=== PATIENT | male | born 1960 | race African-American/Black ===

== ENCOUNTER 2019-06-03 18:34 | Observation (INO) ==
[2019-06-03 19:38] LABS: Basophils % 0.9 %; Eosinophils # 0.1 K/mcL (0.0-0.6); Eosinophils % 3.1 %; Hematocrit 29.5 % (37.5-50.1); Hemoglobin 9.2 g/dL (12.9-16.9); Immature Granulocytes % 0.3 % (0-4); Lymphocytes # 0.5 K/mcL (0.6-4.6); Lymphocytes % 14.6 %; Mean Corpuscular HGB Conc 31.2 g/dL (31.6-35.5); Mean Corpuscular Hemoglobin 24.4 pg (28.0-33.3); Mean Corpuscular Volume 78.2 fL (83.0-100.0); Mean Platelet Volume 7.9 fL (9.4-12.4); Monocytes # 0.4 K/mcL (0.0-1.3); Monocytes % 12.4 %; Neutrophils # 2.2 K/mcL (1.6-8.9); Platelet Count 351 K/mcL (140-400); Red Blood Count 3.77 M/mcL (4.19-5.50); Red Cell Distribution Width 16.5 % (11.5-14.5); Segmented Neutrophils % 68.7 %; White Blood Count 3.2 K/mcL (4.3-11.1)
[2019-06-03 20:00] LABS: BUN/Creatinine Ratio 22 (6-26); Blood Urea Nitrogen 11 mg/dL (8-23); Calcium 8.9 mg/dL (8.6-10.3); Carbon Dioxide 25 mEq/L (23-29); Chloride 91 mEq/L (98-107); Glucose 110 mg/dL (70-105); Osmolality,Calculated 258 (280-300); Potassium 4.3 mEq/L (3.5-5.1); Sodium 124 mEq/L (136-145); eGFR For African Americans > 60 (> 60); eGFR For Non-African Americans > 60 (> 60)
[2019-06-03] MEDS ORDERED: Melatonin 3 MG TABLET GTUBE SCH (22:15)
[2019-06-03] MEDS ORDERED: Naloxone 0.4 MG/ML INJ IVP PRN (22:17)
[2019-06-03 22:56] LABS: Bilirubin,Urine Negative (Negative); Blood,Urine Negative (Negative); Clarity,Urine Cloudy (Clear); Color,Urine Yellow (Yellow); Glucose,Urine (UA) Normal (Normal); Ketones,Urine Negative (Negative); Leukocyte Esterase,Urine Negative (Negative); Nitrite,Urine Negative (Negative); PH,Urine 8.5 pH Units (5.0-8.0); Protein,Urine Negative (Neg-Trace); Specific Gravity,Urine 1.017 (1.010-1.025); Urobilinogen,Urine Normal (Normal)
[2019-06-03 22:59] LABS: Bacteria,Urine None Seen per hpf (None-Few); Hyaline Casts,Urine None Seen per lpf (None-Few); RBC,Urine 0-3 per hpf (0-3); Squamous Epithelial Cell,Urine Many per lpf (None-Few); WBC,Urine 0-3 per hpf (0-3)
[2019-06-03] MEDS: levETIRAcetam 500 MG/5 ML UDC GTUBE SCH (23:41)
[2019-06-04 02:18] LABS: BUN/Creatinine Ratio 19 (6-26); Blood Urea Nitrogen 10 mg/dL (8-23); Calcium 8.9 mg/dL (8.6-10.3); Carbon Dioxide 24 mEq/L (23-29); Chloride 92 mEq/L (98-107); Glucose 97 mg/dL (70-105); Osmolality,Calculated 253 (280-300); Potassium 4.1 mEq/L (3.5-5.1); Sodium 122 mEq/L (136-145); eGFR For African Americans > 60 (> 60); eGFR For Non-African Americans > 60 (> 60)
[2019-06-04] MEDS ORDERED: 0.9 % Sodium Chloride 1,000 ML IVC SCH (02:30)
[2019-06-04 04:42] LABS: Hematocrit 28.2 % (37.5-50.1); Hemoglobin 9.1 g/dL (12.9-16.9); Mean Corpuscular HGB Conc 32.3 g/dL (31.6-35.5); Mean Corpuscular Hemoglobin 24.5 pg (28.0-33.3); Mean Corpuscular Volume 75.8 fL (83.0-100.0); Mean Platelet Volume 8.1 fL (9.4-12.4); Platelet Count 368 K/mcL (140-400); Red Blood Count 3.72 M/mcL (4.19-5.50); Red Cell Distribution Width 16.6 % (11.5-14.5); White Blood Count 2.9 K/mcL (4.3-11.1)
[2019-06-04 05:02] LABS: Alanine Aminotransferase 11 Units/L (7-52); Albumin/Globulin Ratio 0.9 (1.1-2.2); Alkaline Phosphatase 96 Units/L (34-104); Aspartate Amino Transferase 15 Units/L (13-39); BUN/Creatinine Ratio 18 (6-26); Bilirubin,Total 0.3 mg/dL (0.3-1.0); Blood Urea Nitrogen 10 mg/dL (8-23); Carbon Dioxide 25 mEq/L (23-29); Chloride 91 mEq/L (98-107); Globulin 3.4 g/dL (2.4-3.5); Glucose 94 mg/dL (70-105); Magnesium 1.7 mg/dL (1.6-2.6); Osmolality,Calculated 255 (280-300); Phosphorous 3.1 mg/dL (2.7-4.5); Potassium 3.9 mEq/L (3.5-5.1); Sodium 123 mEq/L (136-145); Total Protein 6.4 g/dL (6.4-8.9); eGFR For African Americans > 60 (> 60); eGFR For Non-African Americans > 60 (> 60)
[2019-06-04 05:16] LABS: Thyroid Stimulating Hormone 1.585 mcIU/mL (0.340-5.600)
[2019-06-04] MEDS: levETIRAcetam 500 MG/5 ML UDC GTUBE SCH (08:30)
[2019-06-04] MEDS ORDERED: *HR* Enoxaparin 40 MG/0.4 ML SYRINGE SQ SCH (09:00)
[2019-06-04] MEDS ORDERED: amLODIPine 5 MG TABLET GTUBE SCH (09:00)
[2019-06-04] MEDS ORDERED: Folic Acid 1 MG TABLET GTUBE SCH (09:00)
[2019-06-04 14:10] VITALS: BP 104/61
== END 2019-06-04 18:47 ==
LOC: 3ANU 18:34 → EMEROOARM 18:34 → SUATTDRO 20:06 → 3ANU 20:44
PROVIDERS: ADMIT Internal Medicine; ATTEND Internal Medicine

== ENCOUNTER 2019-07-28 22:25 | Inpatient (IN) ==
[2019-07-28] MEDS ORDERED: Piperacillin/Tazobactam 3.375 GM in Water for inj. (sterile) 20 ML IVP ONE (22:46)
[2019-07-28] MEDS ORDERED: 0.9 % Sodium Chloride 1,000 ML IVC ONE (22:46)
[2019-07-28] MEDS ORDERED: levoFLOXacin 750 MG/150 ML 750 MG/150 ML BAG IVPB ONE (22:46)
[2019-07-28 22:53] LABS: Basophils % 0.2 %; Eosinophils # 0.2 K/mcL (0.0-0.6); Eosinophils % 0.9 %; Hematocrit 32.9 % (37.5-50.1); Hemoglobin 10.1 g/dL (12.9-16.9); Immature Granulocytes % 0.5 % (0-4); Lymphocytes # 0.9 K/mcL (0.6-4.6); Lymphocytes % 5.1 %; Mean Corpuscular HGB Conc 30.7 g/dL (31.6-35.5); Mean Corpuscular Hemoglobin 25.8 pg (28.0-33.3); Mean Corpuscular Volume 84.1 fL (83.0-100.0); Mean Platelet Volume 9.6 fL (9.4-12.4); Monocytes # 1.2 K/mcL (0.0-1.3); Monocytes % 6.8 %; Neutrophils # 14.8 K/mcL (1.6-8.9); Platelet Count 650 K/mcL (140-400); Red Blood Count 3.91 M/mcL (4.19-5.50); Red Cell Distribution Width 19.4 % (11.5-14.5); Segmented Neutrophils % 86.5 %; White Blood Count 17.1 K/mcL (4.3-11.1)
[2019-07-28] MEDS ORDERED: 0.9 % Sodium Chloride 1,000 ML ONE (22:55)
[2019-07-28 22:58] LABS: INR 1.5; Prothrombin Time 16.6 Seconds (9.4-12.1)
[2019-07-28] MEDS ORDERED: *HR* Etomidate 20 MG/10 ML AMPUL IVP ONE (23:06)
[2019-07-28] MEDS ORDERED: *HR* Rocuronium Bromide 50 MG/5 ML VIAL IVP ONE (23:06)
[2019-07-28 23:11] LABS: Activated Partial Thrombo Time 33.4 Seconds (26.0-36.0)
[2019-07-28 23:14] LABS: Alanine Aminotransferase 24 Units/L (7-52); Albumin 2.7 g/dL (3.5-5.7); Albumin/Globulin Ratio 0.7 (1.1-2.2); Alkaline Phosphatase 265 Units/L (34-104); Aspartate Amino Transferase 22 Units/L (13-39); BUN/Creatinine Ratio 31 (6-26); Bilirubin,Direct 0.2 mg/dL (0.0-0.2); Bilirubin,Indirect 0.2 mg/dL (0.0-1.0); Bilirubin,Total 0.4 mg/dL (0.3-1.0); Blood Urea Nitrogen 20 mg/dL (8-23); Calcium 8.7 mg/dL (8.6-10.3); Carbon Dioxide 26 mEq/L (23-29); Chloride 110 mEq/L (98-107); Glucose 145 mg/dL (70-105); Magnesium 2.1 mg/dL (1.6-2.6); Osmolality,Calculated 301 (280-300); Phosphorous 1.6 mg/dL (2.7-4.5); Potassium 3.7 mEq/L (3.5-5.1); Sodium 143 mEq/L (136-145); Total Protein 6.7 g/dL (6.4-8.9); Troponin I < 0.03 ng/mL (< 0.04); eGFR For African Americans > 60 (> 60); eGFR For Non-African Americans > 60 (> 60)
[2019-07-28] MEDS ORDERED: *HR* FentaNYL (PF) 100 MCG/2 ML VIAL IVP ONE (23:24)
[2019-07-28] MEDS ORDERED: *HR* Midazolam HCl 2 MG/2 ML VIAL IVP ONE (23:24)
[2019-07-28 23:25] LABS: ABG Base Excess 4 mEq/L (-2 to 3); ABG HCO3 30 mEq/L (21-27); ABG Oxygen Saturation 100 % (95-98); ABG PCO2 53 mmHg (35-45); ABG PH 7.37 pH Units (7.32-7.45); ABG PO2 174 mmHg (85-104); ABG TCO2 32 mEq/L (20-26); Blood Gas Modality oxymask
[2019-07-29] MEDS ORDERED: 0.9 % Sodium Chloride 1,000 ML IVC ONE (00:30)
[2019-07-29 00:37] LABS: Bilirubin,Urine Negative (Negative); Blood,Urine Negative (Negative); Clarity,Urine Clear (Clear); Color,Urine Yellow (Yellow); Glucose,Urine (UA) Normal (Normal); Ketones,Urine Negative (Negative); Leukocyte Esterase,Urine Trace (Negative); Nitrite,Urine Negative (Negative); Protein,Urine 30 mg/dL (Neg-Trace); Specific Gravity,Urine 1.025 (1.010-1.025); Urobilinogen,Urine Normal (Normal)
[2019-07-29 00:38] LABS: Bacteria,Urine None Seen per hpf (None-Few); Hyaline Casts,Urine None Seen per lpf (None-Few); RBC,Urine 0-3 per hpf (0-3); Squamous Epithelial Cell,Urine Many per lpf (None-Few); WBC,Urine 0-3 per hpf (0-3)
[2019-07-29] MEDS: Dexmedetomidine HCl 400 MCG/100 ML MLS IVC SCH ×2 (01:42→22:52)
[2019-07-29] MEDS ORDERED: Potassium Phosphate 44 MEQ in 0.9 % Sodium Chloride 250 ML IVPB ONE (02:10)
[2019-07-29] MEDS: FentaNYL (PF) 1,000 MCG in 0.9 % Sodium Chloride 80 ML IVC SCH (02:11)
[2019-07-29] MEDS ORDERED: Artificial Tears SOLN 15 ML BOTTLE BOTH EYES PRN (02:22)
[2019-07-29] MEDS: levETIRAcetam 500 MG/5 ML UDC GTUBE SCH ×3 (02:37→20:19)
[2019-07-29] MEDS: Artificial Tears SOLN 15 ML BOTTLE BOTH EYES SCH ×6 (02:40→23:52)
[2019-07-29 04:14] LABS: Basophils % 0.2 %; Eosinophils # 0.1 K/mcL (0.0-0.6); Eosinophils % 0.6 %; Hematocrit 30.5 % (37.5-50.1); Hemoglobin 9.3 g/dL (12.9-16.9); Immature Granulocytes % 0.4 % (0-4); Lymphocytes # 0.5 K/mcL (0.6-4.6); Mean Corpuscular HGB Conc 30.5 g/dL (31.6-35.5); Mean Corpuscular Hemoglobin 25.7 pg (28.0-33.3); Mean Corpuscular Volume 84.3 fL (83.0-100.0); Mean Platelet Volume 9.8 fL (9.4-12.4); Monocytes # 1.1 K/mcL (0.0-1.3); Monocytes % 6.1 %; Neutrophils # 15.9 K/mcL (1.6-8.9); Platelet Count 562 K/mcL (140-400); Red Blood Count 3.62 M/mcL (4.19-5.50); Red Cell Distribution Width 19.2 % (11.5-14.5); Segmented Neutrophils % 89.7 %; White Blood Count 17.7 K/mcL (4.3-11.1)
[2019-07-29 04:33] LABS: BUN/Creatinine Ratio 29 (6-26); Blood Urea Nitrogen 18 mg/dL (8-23); Calcium 7.8 mg/dL (8.6-10.3); Carbon Dioxide 24 mEq/L (23-29); Chloride 112 mEq/L (98-107); Glucose 101 mg/dL (70-105); Osmolality,Calculated 300 (280-300); Potassium 4.1 mEq/L (3.5-5.1); Sodium 144 mEq/L (136-145); eGFR For African Americans > 60 (> 60); eGFR For Non-African Americans > 60 (> 60)
[2019-07-29 04:47] LABS: ABG Base Excess 0 mEq/L (-2 to 3); ABG HCO3 24 mEq/L (21-27); ABG Oxygen Saturation 95 % (95-98); ABG PCO2 36 mmHg (35-45); ABG PH 7.44 pH Units (7.32-7.45); ABG PO2 73 mmHg (85-104); ABG TCO2 25 mEq/L (20-26); Blood Gas Modality ASSIST CONTROL; Blood Gas VT 450 cc
[2019-07-29] MEDS: *HR* Heparin 5,000 UNIT/ML VIAL SQ SCH ×3 (05:03→23:17)
[2019-07-29] MEDS ORDERED: Aminoglycoside Consult 1 EACH MC ONE (07:28)
[2019-07-29] MEDS: Pantoprazole 40 MG VIAL IVP SCH (08:32)
[2019-07-29] MEDS: Piperacillin/Tazobactam 3.375 GM in 0.9 % Sodium Chloride Mini Bag 100 ML IVPB SCH ×3 (08:32→23:47)
[2019-07-29] MEDS: Chlorhexidine Rinse 15 ML MOUTHWASH MM SCH ×2 (08:32→19:50)
[2019-07-29 10:22] LABS: Basophils # 0.1 K/mcL (0.0-0.2); Basophils % 0.2 %; Eosinophils # 0.3 K/mcL (0.0-0.6); Eosinophils % 1.5 %; Hematocrit 27.4 % (37.5-50.1); Hemoglobin 8.2 g/dL (12.9-16.9); Immature Granulocytes % 0.6 % (0-4); Lymphocytes # 0.6 K/mcL (0.6-4.6); Lymphocytes % 2.8 %; Mean Corpuscular HGB Conc 29.9 g/dL (31.6-35.5); Mean Platelet Volume 9.8 fL (9.4-12.4); Monocytes # 1.4 K/mcL (0.0-1.3); Monocytes % 6.6 %; Neutrophils # 18.3 K/mcL (1.6-8.9); Platelet Count 513 K/mcL (140-400); Red Blood Count 3.15 M/mcL (4.19-5.50); Red Cell Distribution Width 19.3 % (11.5-14.5); Segmented Neutrophils % 88.3 %; White Blood Count 20.8 K/mcL (4.3-11.1)
[2019-07-29 15:19] LABS: Basophils # 0.1 K/mcL (0.0-0.2); Basophils % 0.3 %; Eosinophils # 0.4 K/mcL (0.0-0.6); Hematocrit 27.2 % (37.5-50.1); Hemoglobin 8.2 g/dL (12.9-16.9); Immature Granulocytes % 0.7 % (0-4); Lymphocytes # 0.6 K/mcL (0.6-4.6); Mean Corpuscular HGB Conc 30.1 g/dL (31.6-35.5); Mean Corpuscular Hemoglobin 25.6 pg (28.0-33.3); Mean Platelet Volume 9.8 fL (9.4-12.4); Monocytes # 1.3 K/mcL (0.0-1.3); Monocytes % 6.9 %; Neutrophils # 15.9 K/mcL (1.6-8.9); Platelet Count 511 K/mcL (140-400); Red Cell Distribution Width 19.4 % (11.5-14.5); Segmented Neutrophils % 87.1 %; White Blood Count 18.2 K/mcL (4.3-11.1)
[2019-07-29 20:39] LABS: Basophils # 0.1 K/mcL (0.0-0.2); Basophils % 0.3 %; Eosinophils # 0.4 K/mcL (0.0-0.6); Eosinophils % 2.3 %; Immature Granulocytes % 0.6 % (0-4); Lymphocytes # 0.6 K/mcL (0.6-4.6); Lymphocytes % 3.1 %; Mean Corpuscular HGB Conc 29.6 g/dL (31.6-35.5); Mean Corpuscular Hemoglobin 25.8 pg (28.0-33.3); Mean Corpuscular Volume 87.1 fL (83.0-100.0); Mean Platelet Volume 9.8 fL (9.4-12.4); Monocytes # 1.2 K/mcL (0.0-1.3); Monocytes % 6.9 %; Neutrophils # 15.7 K/mcL (1.6-8.9); Platelet Count 478 K/mcL (140-400); Red Cell Distribution Width 19.2 % (11.5-14.5); Segmented Neutrophils % 86.8 %
[2019-07-30] MEDS: FentaNYL (PF) 1,000 MCG in 0.9 % Sodium Chloride 80 ML IVC SCH (04:13)
[2019-07-30] MEDS: Artificial Tears SOLN 15 ML BOTTLE BOTH EYES SCH (04:14)
[2019-07-30 04:51] LABS: ABG Base Excess 0 mEq/L (-2 to 3); ABG HCO3 24 mEq/L (21-27); ABG Oxygen Saturation 97 % (95-98); ABG PCO2 35 mmHg (35-45); ABG PH 7.44 pH Units (7.32-7.45); ABG PO2 90 mmHg (85-104); ABG TCO2 25 mEq/L (20-26); Blood Gas Modality ASSIST CONTROL; Blood Gas VT 450 cc
[2019-07-30] MEDS: *HR* Heparin 5,000 UNIT/ML VIAL SQ SCH ×3 (05:35→20:37)
[2019-07-30] MEDS ORDERED: *HR* Rocuronium Bromide 50 MG/5 ML VIAL IVC ONE (07:44)
[2019-07-30] MEDS ORDERED: *HR* Etomidate 20 MG/10 ML AMPUL IVP ONE (07:44)
[2019-07-30] MEDS: Piperacillin/Tazobactam 3.375 GM in 0.9 % Sodium Chloride Mini Bag 100 ML IVPB SCH ×3 (09:59→23:54)
[2019-07-30] MEDS: levETIRAcetam 500 MG/5 ML UDC GTUBE SCH ×2 (09:59→20:37)
[2019-07-30 10:24] LABS: Immature Granulocytes % 0.7 % (0-4); Mean Platelet Volume 10.7 fL (9.4-12.4)
[2019-07-30 10:26] LABS: Basophils # 0.1 K/mcL (0.0-0.2); Basophils % 0.4 %; Eosinophils # 0.4 K/mcL (0.0-0.6); Eosinophils % 2.7 %; Hematocrit 27.2 % (37.5-50.1); Hemoglobin 8.1 g/dL (12.9-16.9); Lymphocytes # 0.4 K/mcL (0.6-4.6); Mean Corpuscular HGB Conc 29.8 g/dL (31.6-35.5); Mean Corpuscular Hemoglobin 25.5 pg (28.0-33.3); Mean Corpuscular Volume 85.5 fL (83.0-100.0); Monocytes # 0.9 K/mcL (0.0-1.3); Monocytes % 6.2 %; Neutrophils # 12.1 K/mcL (1.6-8.9); Platelet Count 519 K/mcL (140-400); Red Blood Count 3.18 M/mcL (4.19-5.50); Red Cell Distribution Width 19.4 % (11.5-14.5); White Blood Count 13.9 K/mcL (4.3-11.1)
[2019-07-30 10:44] LABS: BUN/Creatinine Ratio 31 (6-26); Blood Urea Nitrogen 27 mg/dL (8-23); Calcium 7.7 mg/dL (8.6-10.3); Carbon Dioxide 21 mEq/L (23-29); Chloride 113 mEq/L (98-107); Glucose 95 mg/dL (70-105); Osmolality,Calculated 309 (280-300); Potassium 4.1 mEq/L (3.5-5.1); Sodium 147 mEq/L (136-145); eGFR For African Americans > 60 (> 60); eGFR For Non-African Americans > 60 (> 60)
[2019-07-30 10:46] LABS: Anisocytosis 1+ (Not Present); Hypochromasia Present (Not Present); Platelet Estimate Increased (Normal)
[2019-07-30] MEDS ORDERED: ACETAMINOPHEN 650 MG GTUBE PRN (11:39)
[2019-07-30] MEDS ORDERED: Albuterol Neb 1.25 MG/3 ML VIAL IH SCH (11:45)
[2019-07-30] MEDS: Albuterol 2.5 MG/3 ML NEBULIZER IH SCH ×2 (15:57→22:14)
[2019-07-30] MEDS: D5% in 0.9% NACL 1,000 ML IVC SCH (18:11)
[2019-07-30] MEDS: Melatonin 3 MG TABLET GTUBE SCH (20:37)
[2019-07-30] MEDS: traZODone 50 MG TABLET GTUBE SCH (20:37)
[2019-07-30] MEDS: Lactobacillus 1 EACH CAP.SPRINK PO SCH (20:37)
[2019-07-30] MEDS: Mirtazapine 15 MG TABLET PO SCH (20:37)
[2019-07-31] MEDS: Albuterol 2.5 MG/3 ML NEBULIZER IH SCH ×4 (03:46→22:38)
[2019-07-31 04:06] LABS: Basophils % 0.2 %; Eosinophils # 0.2 K/mcL (0.0-0.6); Eosinophils % 1.2 %; Hematocrit 30.1 % (37.5-50.1); Hemoglobin 8.9 g/dL (12.9-16.9); Immature Granulocytes % 0.3 % (0-4); Lymphocytes # 0.4 K/mcL (0.6-4.6); Lymphocytes % 3.1 %; Mean Corpuscular HGB Conc 29.6 g/dL (31.6-35.5); Mean Corpuscular Hemoglobin 25.5 pg (28.0-33.3); Mean Corpuscular Volume 86.2 fL (83.0-100.0); Mean Platelet Volume 9.6 fL (9.4-12.4); Monocytes # 0.7 K/mcL (0.0-1.3); Monocytes % 5.6 %; Neutrophils # 11.3 K/mcL (1.6-8.9); Platelet Count 534 K/mcL (140-400); Red Blood Count 3.49 M/mcL (4.19-5.50); Red Cell Distribution Width 19.3 % (11.5-14.5); Segmented Neutrophils % 89.6 %; White Blood Count 12.6 K/mcL (4.3-11.1)
[2019-07-31 04:28] LABS: BUN/Creatinine Ratio 30 (6-26); Blood Urea Nitrogen 20 mg/dL (8-23); Calcium 7.9 mg/dL (8.6-10.3); Carbon Dioxide 22 mEq/L (23-29); Chloride 115 mEq/L (98-107); Glucose 139 mg/dL (70-105); Osmolality,Calculated 313 (280-300); Potassium 3.5 mEq/L (3.5-5.1); Sodium 149 mEq/L (136-145); eGFR For African Americans > 60 (> 60); eGFR For Non-African Americans > 60 (> 60)
[2019-07-31] MEDS: *HR* Heparin 5,000 UNIT/ML VIAL SQ SCH ×3 (05:40→23:31)
[2019-07-31] MEDS: Dexmedetomidine HCl 400 MCG/100 ML MLS IVC SCH (05:41)
[2019-07-31] MEDS: Artificial Tears SOLN 15 ML BOTTLE BOTH EYES SCH (06:48)
[2019-07-31] MEDS: Chlorhexidine Rinse 15 ML MOUTHWASH MM SCH (06:49)
[2019-07-31] MEDS: Pantoprazole 40 MG VIAL IVP SCH (06:49)
[2019-07-31] MEDS: D5% in 0.9% NACL 1,000 ML IVC SCH (07:40)
[2019-07-31] MEDS: levETIRAcetam 500 MG/5 ML UDC GTUBE SCH ×2 (07:40→19:25)
[2019-07-31] MEDS: Piperacillin/Tazobactam 3.375 GM in 0.9 % Sodium Chloride Mini Bag 100 ML IVPB SCH ×2 (07:41→14:28)
[2019-07-31] MEDS: Lactobacillus 1 EACH CAP.SPRINK PO SCH ×2 (07:42→19:25)
[2019-07-31] MEDS: Folic Acid 1 MG TABLET GTUBE SCH (07:42)
[2019-07-31] MEDS ORDERED: E-Z-HD (BARIUM SULF) SUSPENSION PO ONE (09:28)
[2019-07-31] MEDS ORDERED: E-Z-PAQUE (BARIUM SULF) SUSP 1 BOTTLE PO ONE (09:28)
[2019-07-31 13:53] LABS: VBG Ionized Calcium 1.02 mmol/L (1.15-1.35)
[2019-07-31 14:09] LABS: BUN/Creatinine Ratio 23 (6-26); Blood Urea Nitrogen 16 mg/dL (8-23); Calcium 7.8 mg/dL (8.6-10.3); Carbon Dioxide 23 mEq/L (23-29); Chloride 115 mEq/L (98-107); Glucose 126 mg/dL (70-105); Magnesium 2.4 mg/dL (1.6-2.6); Osmolality,Calculated 323 (280-300); Phosphorous 2.1 mg/dL (2.7-4.5); Sodium 155 mEq/L (136-145); eGFR For African Americans > 60 (> 60); eGFR For Non-African Americans > 60 (> 60)
[2019-07-31] MEDS ORDERED: Calcium Gluconate 1gm/50mL 1 GM/50 ML BAG IVPB PRN (14:40)
[2019-07-31] MEDS: Piperacillin/Tazobactam 3.375 GM in D5% in Water (Mini-Bag+) 100 ML IVPB SCH ×2 (15:17→23:30)
[2019-07-31] MEDS: Potassium Phosphate 44 MEQ in D5% in Water 250 ML IVPB PRN (15:20)
[2019-07-31] MEDS: D5% in Water 1,000 ML IVC SCH (15:59)
[2019-07-31] MEDS ORDERED: Potassium Chloride Elixir 20 MEQ/15 ML UDC GTUBE ONE (18:17)
[2019-07-31] MEDS: Mirtazapine 15 MG TABLET PO SCH (19:25)
[2019-07-31] MEDS: Melatonin 3 MG TABLET GTUBE SCH (19:25)
[2019-07-31] MEDS: traZODone 50 MG TABLET GTUBE SCH (19:25)
[2019-08-01] MEDS: Dexmedetomidine HCl 400 MCG/100 ML MLS IVC SCH ×2 (00:11→09:41)
[2019-08-01] MEDS: D5% in Water 1,000 ML IVC SCH ×2 (02:49→13:18)
[2019-08-01] MEDS: Albuterol 2.5 MG/3 ML NEBULIZER IH SCH ×4 (03:47→21:17)
[2019-08-01 04:29] LABS: VBG Ionized Calcium 1.13 mmol/L (1.15-1.35)
[2019-08-01] MEDS: *HR* Heparin 5,000 UNIT/ML VIAL SQ SCH ×3 (04:30→20:29)
[2019-08-01 04:32] LABS: Basophils % 0.2 %; Eosinophils # 0.1 K/mcL (0.0-0.6); Eosinophils % 0.9 %; Hematocrit 27.3 % (37.5-50.1); Hemoglobin 8.3 g/dL (12.9-16.9); Immature Granulocytes % 0.6 % (0-4); Lymphocytes # 0.3 K/mcL (0.6-4.6); Lymphocytes % 2.2 %; Mean Corpuscular HGB Conc 30.4 g/dL (31.6-35.5); Mean Corpuscular Hemoglobin 25.5 pg (28.0-33.3); Mean Corpuscular Volume 83.7 fL (83.0-100.0); Monocytes # 0.8 K/mcL (0.0-1.3); Neutrophils # 10.4 K/mcL (1.6-8.9); Platelet Count 513 K/mcL (140-400); Red Blood Count 3.26 M/mcL (4.19-5.50); Red Cell Distribution Width 19.3 % (11.5-14.5); Segmented Neutrophils % 89.1 %; White Blood Count 11.6 K/mcL (4.3-11.1)
[2019-08-01 04:54] LABS: BUN/Creatinine Ratio 19 (6-26); Blood Urea Nitrogen 12 mg/dL (8-23); Calcium 8.1 mg/dL (8.6-10.3); Carbon Dioxide 23 mEq/L (23-29); Chloride 111 mEq/L (98-107); Glucose 130 mg/dL (70-105); Magnesium 2.3 mg/dL (1.6-2.6); Osmolality,Calculated 308 (280-300); Phosphorous 2.4 mg/dL (2.7-4.5); Potassium 3.2 mEq/L (3.5-5.1); Sodium 148 mEq/L (136-145); eGFR For African Americans > 60 (> 60); eGFR For Non-African Americans > 60 (> 60)
[2019-08-01] MEDS ORDERED: Potassium Chloride Elixir 20 MEQ/15 ML UDC GTUBE ONE ×2 (05:05→11:53)
[2019-08-01] MEDS ORDERED: *HR* Etomidate 20 MG/10 ML AMPUL IVP ONE (08:05)
[2019-08-01] MEDS ORDERED: *HR* LORazepam 2 MG/ML VIAL IVP ONE (08:05)
[2019-08-01] MEDS ORDERED: *HR* Midazolam HCl 5 MG/5 ML VIAL IVP ONE (08:05)
[2019-08-01 08:10] LABS: ABG Base Excess 2 mEq/L (-2 to 3); ABG HCO3 25 mEq/L (21-27); ABG Oxygen Saturation 96 % (95-98); ABG PCO2 32 mmHg (35-45); ABG PH 7.49 pH Units (7.32-7.45); ABG PO2 72 mmHg (85-104); ABG TCO2 26 mEq/L (20-26)
[2019-08-01] MEDS ORDERED: Artificial Tears SOLN 15 ML BOTTLE BOTH EYES PRN (09:31)
[2019-08-01] MEDS: Piperacillin/Tazobactam 3.375 GM in D5% in Water (Mini-Bag+) 100 ML IVPB SCH ×3 (09:47→23:09)
[2019-08-01] MEDS: Budesonide/Formoterol 160/4.5 1 PUFF INH IH SCH ×2 (09:47→21:17)
[2019-08-01] MEDS: Folic Acid 1 MG TABLET GTUBE SCH (09:56)
[2019-08-01] MEDS: FentaNYL (PF) 1,000 MCG in 0.9 % Sodium Chloride 80 ML IVC SCH (09:56)
[2019-08-01] MEDS: levETIRAcetam 500 MG/5 ML UDC GTUBE SCH ×2 (09:56→20:29)
[2019-08-01] MEDS: Lactobacillus 1 EACH CAP.SPRINK PO SCH ×2 (09:56→20:29)
[2019-08-01] MEDS ORDERED: Lactulose Oral Soln 20 GM/30 ML UDC PO ONE (10:35)
[2019-08-01] MEDS ORDERED: Bisacodyl 10 MG RECTAL SUPPOSITORY RC SCH (10:35)
[2019-08-01] MEDS ORDERED: *HR* LORazepam 2 MG/ML VIAL IVP PRN (11:42)
[2019-08-01] MEDS: Pantoprazole 40 MG VIAL IVP SCH (12:09)
[2019-08-01] MEDS: Artificial Tears SOLN 15 ML BOTTLE BOTH EYES SCH ×4 (12:55→23:09)
[2019-08-01 12:59] LABS: BUN/Creatinine Ratio 16 (6-26); Blood Urea Nitrogen 11 mg/dL (8-23); Calcium 7.9 mg/dL (8.6-10.3); Carbon Dioxide 26 mEq/L (23-29); Chloride 110 mEq/L (98-107); Glucose 183 mg/dL (70-105); Osmolality,Calculated 300 (280-300); Phosphorous 2.4 mg/dL (2.7-4.5); Potassium 3.4 mEq/L (3.5-5.1); Sodium 143 mEq/L (136-145); eGFR For African Americans > 60 (> 60); eGFR For Non-African Americans > 60 (> 60)
[2019-08-01] MEDS: Potassium Phosphate 44 MEQ in D5% in Water 250 ML IVPB PRN (15:05)
[2019-08-01 15:46] LABS: ABG Base Excess 1 mEq/L (-2 to 3); ABG HCO3 24 mEq/L (21-27); ABG Oxygen Saturation 96 % (95-98); ABG PCO2 31 mmHg (35-45); ABG PO2 76 mmHg (85-104); ABG TCO2 25 mEq/L (20-26); Blood Gas VT 480 cc
[2019-08-01] MEDS: Chlorhexidine Rinse 15 ML MOUTHWASH MM SCH (20:29)
[2019-08-01] MEDS: traZODone 50 MG TABLET GTUBE SCH (20:29)
[2019-08-01] MEDS: Melatonin 3 MG TABLET GTUBE SCH (20:29)
[2019-08-01] MEDS: Mirtazapine 15 MG TABLET PO SCH (20:29)
[2019-08-01] MEDS: D5% in 0.45% NACL w KCl 20 MEQ/1,000 ML MLS IVC SCH (20:30)
[2019-08-02] MEDS: FentaNYL (PF) 1,000 MCG in 0.9 % Sodium Chloride 80 ML IVC SCH ×2 (01:11→14:06)
[2019-08-02 01:28] LABS: Basophils % 0.2 %; Eosinophils # 0.2 K/mcL (0.0-0.6); Eosinophils % 1.4 %; Hematocrit 25.9 % (37.5-50.1); Hemoglobin 7.6 g/dL (12.9-16.9); Immature Granulocytes % 0.4 % (0-4); Lymphocytes # 0.5 K/mcL (0.6-4.6); Lymphocytes % 3.1 %; Mean Corpuscular HGB Conc 29.3 g/dL (31.6-35.5); Mean Corpuscular Hemoglobin 25.7 pg (28.0-33.3); Mean Corpuscular Volume 87.5 fL (83.0-100.0); Mean Platelet Volume 10.6 fL (9.4-12.4); Monocytes # 1.2 K/mcL (0.0-1.3); Monocytes % 7.7 %; Neutrophils # 13.6 K/mcL (1.6-8.9); Platelet Count 526 K/mcL (140-400); Red Blood Count 2.96 M/mcL (4.19-5.50); Red Cell Distribution Width 18.9 % (11.5-14.5); Segmented Neutrophils % 87.2 %; White Blood Count 15.6 K/mcL (4.3-11.1)
[2019-08-02 01:56] LABS: BUN/Creatinine Ratio 16 (6-26); Blood Urea Nitrogen 11 mg/dL (8-23); Calcium 7.7 mg/dL (8.6-10.3); Carbon Dioxide 23 mEq/L (23-29); Chloride 109 mEq/L (98-107); Glucose 119 mg/dL (70-105); Magnesium 2.1 mg/dL (1.6-2.6); Osmolality,Calculated 287 (280-300); Phosphorous 2.8 mg/dL (2.7-4.5); Potassium 4.6 mEq/L (3.5-5.1); Sodium 138 mEq/L (136-145); eGFR For African Americans > 60 (> 60); eGFR For Non-African Americans > 60 (> 60)
[2019-08-02] MEDS: Dexmedetomidine HCl 400 MCG/100 ML MLS IVC SCH ×3 (02:43→20:56)
[2019-08-02] MEDS: Albuterol 2.5 MG/3 ML NEBULIZER IH SCH ×4 (03:06→22:20)
[2019-08-02] MEDS ORDERED: 0.9 % Sodium Chloride 250 ML ONE (04:01)
[2019-08-02] MEDS: Artificial Tears SOLN 15 ML BOTTLE BOTH EYES SCH ×6 (04:25→23:42)
[2019-08-02 05:05] LABS: ABG Base Excess -1 mEq/L (-2 to 3); ABG HCO3 23 mEq/L (21-27); ABG Oxygen Saturation 97 % (95-98); ABG PCO2 38 mmHg (35-45); ABG PO2 96 mmHg (85-104); ABG TCO2 25 mEq/L (20-26); Blood Gas Modality ASSIST CONTROL; Blood Gas VT 480 cc
[2019-08-02] MEDS: *HR* Heparin 5,000 UNIT/ML VIAL SQ SCH ×3 (05:53→19:49)
[2019-08-02] MEDS: Chlorhexidine Rinse 15 ML MOUTHWASH MM SCH ×2 (08:39→19:49)
[2019-08-02] MEDS: Lactobacillus 1 EACH CAP.SPRINK PO SCH ×2 (08:39→19:50)
[2019-08-02] MEDS: Folic Acid 1 MG TABLET GTUBE SCH (08:39)
[2019-08-02] MEDS: levETIRAcetam 500 MG/5 ML UDC GTUBE SCH ×2 (08:40→19:49)
[2019-08-02] MEDS: Pantoprazole 40 MG VIAL IVP SCH (08:40)
[2019-08-02] MEDS: Budesonide/Formoterol 160/4.5 1 PUFF INH IH SCH ×2 (09:14→22:20)
[2019-08-02] MEDS: Piperacillin/Tazobactam 3.375 GM in D5% in Water (Mini-Bag+) 100 ML IVPB SCH ×3 (09:15→23:42)
[2019-08-02] MEDS ORDERED: *HR* Midazolam HCl 5 MG/5 ML VIAL IVP ONE (11:17)
[2019-08-02] MEDS: traZODone 50 MG TABLET GTUBE SCH (19:50)
[2019-08-02] MEDS: Melatonin 3 MG TABLET GTUBE SCH (19:50)
[2019-08-02] MEDS: Mirtazapine 15 MG TABLET PO SCH (19:50)
[2019-08-03] MEDS: FentaNYL (PF) 1,000 MCG in 0.9 % Sodium Chloride 80 ML IVC SCH (01:47)
[2019-08-03] MEDS ORDERED: Ringers Solution, Lactated 1,000 ML IVC ONE (02:04)
[2019-08-03] MEDS: Artificial Tears SOLN 15 ML BOTTLE BOTH EYES SCH ×5 (04:03→19:45)
[2019-08-03] MEDS: Albuterol 2.5 MG/3 ML NEBULIZER IH SCH ×4 (04:16→22:36)
[2019-08-03] MEDS: *HR* Heparin 5,000 UNIT/ML VIAL SQ SCH ×3 (04:29→23:14)
[2019-08-03] MEDS: Dexmedetomidine HCl 400 MCG/100 ML MLS IVC SCH (04:29)
[2019-08-03 05:31] LABS: ABG Base Excess -2 mEq/L (-2 to 3); ABG HCO3 22 mEq/L (21-27); ABG Oxygen Saturation 94 % (95-98); ABG PCO2 35 mmHg (35-45); ABG PH 7.41 pH Units (7.32-7.45); ABG PO2 69 mmHg (85-104); ABG TCO2 23 mEq/L (20-26); Blood Gas Modality AF; Blood Gas VT 480 cc
[2019-08-03 05:39] LABS: BUN/Creatinine Ratio 25 (6-26); Blood Urea Nitrogen 18 mg/dL (8-23); Calcium 7.3 mg/dL (8.6-10.3); Carbon Dioxide 16 mEq/L (23-29); Chloride 109 mEq/L (98-107); Glucose 92 mg/dL (70-105); Osmolality,Calculated 280 (280-300); Potassium 4.5 mEq/L (3.5-5.1); Sodium 134 mEq/L (136-145); eGFR For African Americans > 60 (> 60); eGFR For Non-African Americans > 60 (> 60)
[2019-08-03 08:03] LABS: Basophils % 0.2 %; Eosinophils # 0.3 K/mcL (0.0-0.6); Eosinophils % 1.8 %; Hematocrit 29.3 % (37.5-50.1); Immature Granulocytes % 0.9 % (0-4); Immature Platelets 3.4 % (1.1-6.1); Lymphocytes # 0.4 K/mcL (0.6-4.6); Lymphocytes % 2.7 %; Mean Corpuscular HGB Conc 30.7 g/dL (31.6-35.5); Mean Corpuscular Volume 84.7 fL (83.0-100.0); Monocytes % 5.8 %; Neutrophils # 14.5 K/mcL (1.6-8.9); Platelet Count 406 K/mcL (140-400); Red Blood Count 3.46 M/mcL (4.19-5.50); Red Cell Distribution Width 18.2 % (11.5-14.5); Segmented Neutrophils % 88.6 %; White Blood Count 16.4 K/mcL (4.3-11.1)
[2019-08-03] MEDS: Lactobacillus 1 EACH CAP.SPRINK PO SCH ×2 (08:55→19:44)
[2019-08-03] MEDS: levETIRAcetam 500 MG/5 ML UDC GTUBE SCH ×2 (08:55→19:44)
[2019-08-03] MEDS: Folic Acid 1 MG TABLET GTUBE SCH (08:55)
[2019-08-03] MEDS: Piperacillin/Tazobactam 3.375 GM in D5% in Water (Mini-Bag+) 100 ML IVPB SCH ×2 (08:55→14:59)
[2019-08-03] MEDS: Pantoprazole 40 MG VIAL IVP SCH (08:55)
[2019-08-03] MEDS: Chlorhexidine Rinse 15 ML MOUTHWASH MM SCH ×2 (08:58→19:44)
[2019-08-03] MEDS: Budesonide/Formoterol 160/4.5 1 PUFF INH IH SCH ×2 (09:46→22:36)
[2019-08-03] MEDS: *HR* OxyCODONE Oral Soln 5 MG/5 ML UD.LIQ GTUBE PRN ×2 (11:12→18:36)
[2019-08-03] MEDS ORDERED: D5% in 0.9% NACL 1,000 ML IVC SCH (16:45)
[2019-08-03] MEDS: Melatonin 3 MG TABLET GTUBE SCH (19:44)
[2019-08-03] MEDS: traZODone 50 MG TABLET GTUBE SCH (19:44)
[2019-08-03] MEDS: Mirtazapine 15 MG TABLET PO SCH (19:44)
[2019-08-03] MEDS: *HR* HYDROmorphone 2 MG/ML SYRINGE IVP PRN (22:27)
[2019-08-04] MEDS: Artificial Tears SOLN 15 ML BOTTLE BOTH EYES SCH ×6 (00:08→21:52)
[2019-08-04] MEDS: Piperacillin/Tazobactam 3.375 GM in D5% in Water (Mini-Bag+) 100 ML IVPB SCH ×4 (00:08→22:50)
[2019-08-04] MEDS: *HR* HYDROmorphone 2 MG/ML SYRINGE IVP PRN (03:50)
[2019-08-04] MEDS: Albuterol 2.5 MG/3 ML NEBULIZER IH SCH ×4 (05:00→22:20)
[2019-08-04] MEDS: *HR* Heparin 5,000 UNIT/ML VIAL SQ SCH ×3 (05:50→22:57)
[2019-08-04 06:46] LABS: Basophils % 0.2 %; Eosinophils # 0.2 K/mcL (0.0-0.6); Hematocrit 27.5 % (37.5-50.1); Hemoglobin 8.3 g/dL (12.9-16.9); Immature Granulocytes % 0.6 % (0-4); Lymphocytes # 0.3 K/mcL (0.6-4.6); Lymphocytes % 1.7 %; Mean Corpuscular HGB Conc 30.2 g/dL (31.6-35.5); Mean Corpuscular Hemoglobin 25.9 pg (28.0-33.3); Mean Corpuscular Volume 85.9 fL (83.0-100.0); Mean Platelet Volume 9.7 fL (9.4-12.4); Monocytes # 0.9 K/mcL (0.0-1.3); Monocytes % 5.6 %; Neutrophils # 14.6 K/mcL (1.6-8.9); Platelet Count 458 K/mcL (140-400); Segmented Neutrophils % 90.9 %
[2019-08-04 06:51] LABS: VBG Ionized Calcium 1.15 mmol/L (1.15-1.35)
[2019-08-04 07:05] LABS: BUN/Creatinine Ratio 20 (6-26); Blood Urea Nitrogen 14 mg/dL (8-23); Calcium 7.9 mg/dL (8.6-10.3); Carbon Dioxide 23 mEq/L (23-29); Chloride 108 mEq/L (98-107); Glucose 124 mg/dL (70-105); Magnesium 2.1 mg/dL (1.6-2.6); Osmolality,Calculated 292 (280-300); Phosphorous 2.1 mg/dL (2.7-4.5); Potassium 3.8 mEq/L (3.5-5.1); Sodium 140 mEq/L (136-145); eGFR For African Americans > 60 (> 60); eGFR For Non-African Americans > 60 (> 60)
[2019-08-04] MEDS ORDERED: Potassium Chloride Elixir 20 MEQ/15 ML UDC GTUBE ONE (07:41)
[2019-08-04] MEDS: Folic Acid 1 MG TABLET GTUBE SCH (08:24)
[2019-08-04] MEDS: levETIRAcetam 500 MG/5 ML UDC GTUBE SCH ×2 (08:24→21:52)
[2019-08-04] MEDS: Lactobacillus 1 EACH CAP.SPRINK PO SCH ×2 (08:24→21:52)
[2019-08-04] MEDS: Chlorhexidine Rinse 15 ML MOUTHWASH MM SCH ×2 (08:24→21:52)
[2019-08-04] MEDS: Pantoprazole 40 MG VIAL IVP SCH (09:21)
[2019-08-04] MEDS: Budesonide/Formoterol 160/4.5 1 PUFF INH IH SCH ×2 (10:01→22:20)
[2019-08-04 13:20] LABS: Phosphorous 2.3 mg/dL (2.7-4.5); Potassium 3.9 mEq/L (3.5-5.1)
[2019-08-04] MEDS: *HR* OxyCODONE Oral Soln 5 MG/5 ML UD.LIQ GTUBE PRN (15:41)
[2019-08-04] MEDS ORDERED: *HR* OxyCODONE Oral Soln 5 MG/5 ML UD.LIQ GTUBE PRN (21:07)
[2019-08-04] MEDS: traZODone 50 MG TABLET GTUBE SCH (21:52)
[2019-08-04] MEDS: Mirtazapine 15 MG TABLET PO SCH (21:52)
[2019-08-04] MEDS: Melatonin 3 MG TABLET GTUBE SCH (21:52)
[2019-08-04] MEDS: D5% in 0.45% NACL w KCl 20 MEQ/1,000 ML MLS IVC SCH (22:49)
[2019-08-04] MEDS: *HR* LORazepam 2 MG/ML VIAL IVP PRN (22:58)
[2019-08-05] MEDS: Piperacillin/Tazobactam 3.375 GM in D5% in Water (Mini-Bag+) 100 ML IVPB SCH ×2 (00:41→07:51)
[2019-08-05 00:44] LABS: Basophils % 0.2 %; Eosinophils # 0.1 K/mcL (0.0-0.6); Eosinophils % 0.9 %; Hemoglobin 9.1 g/dL (12.9-16.9); Immature Granulocytes % 0.6 % (0-4); Lymphocytes # 0.2 K/mcL (0.6-4.6); Lymphocytes % 1.9 %; Mean Corpuscular HGB Conc 30.3 g/dL (31.6-35.5); Mean Corpuscular Hemoglobin 25.7 pg (28.0-33.3); Mean Corpuscular Volume 84.7 fL (83.0-100.0); Mean Platelet Volume 10.1 fL (9.4-12.4); Monocytes # 0.8 K/mcL (0.0-1.3); Monocytes % 6.1 %; Neutrophils # 11.4 K/mcL (1.6-8.9); Platelet Count 523 K/mcL (140-400); Red Blood Count 3.54 M/mcL (4.19-5.50); Red Cell Distribution Width 18.3 % (11.5-14.5); Segmented Neutrophils % 90.3 %; White Blood Count 12.6 K/mcL (4.3-11.1)
[2019-08-05 01:01] LABS: BUN/Creatinine Ratio 17 (6-26); Blood Urea Nitrogen 11 mg/dL (8-23); Calcium 8.3 mg/dL (8.6-10.3); Carbon Dioxide 24 mEq/L (23-29); Chloride 108 mEq/L (98-107); Glucose 123 mg/dL (70-105); Osmolality,Calculated 291 (280-300); Potassium 3.8 mEq/L (3.5-5.1); Sodium 140 mEq/L (136-145); eGFR For African Americans > 60 (> 60); eGFR For Non-African Americans > 60 (> 60)
[2019-08-05] MEDS: Albuterol 2.5 MG/3 ML NEBULIZER IH SCH ×4 (04:36→21:59)
[2019-08-05 05:25] LABS: ABG Base Excess 2 mEq/L (-2 to 3); ABG HCO3 27 mEq/L (21-27); ABG Oxygen Saturation 98 % (95-98); ABG PCO2 40 mmHg (35-45); ABG PH 7.43 pH Units (7.32-7.45); ABG PO2 98 mmHg (85-104); ABG TCO2 28 mEq/L (20-26)
[2019-08-05] MEDS: *HR* Heparin 5,000 UNIT/ML VIAL SQ SCH ×3 (06:11→20:53)
[2019-08-05 07:03] LABS: Adenovirus Not Detected (Not Detect); Bordetella Pertussis Not Detected (Not Detect); Chlamydophila pneumoniae Not Detected (Not Detect); Coronavirus 229E Not Detected (Not Detect); Coronavirus HKU1 Not Detected (Not Detect); Coronavirus NL63 Not Detected (Not Detect); Coronavirus OC43 Not Detected (Not Detect); Human Metapneumovirus Not Detected (Not Detect); Human Rhinovirus/Enterovirus Not Detected (Not Detect); Influenza A Subtype 2009 H1 Not Detected (Not Detect); Influenza A Untypeable Not Detected (Not Detect); Influenza B Not Detected (Not Detect); Mycoplasma pneumoniae Not Detected (Not Detect); Parainfluenza Virus 1 Not Detected (Not Detect); Parainfluenza Virus 2 Not Detected (Not Detect); Parainfluenza Virus 3 Not Detected (Not Detect); Parainfluenza Virus 4 Not Detected (Not Detect); Respiratory Syncytial Virus Not Detected (Not Detect)
[2019-08-05] MEDS: levETIRAcetam 500 MG/5 ML UDC GTUBE SCH ×2 (07:52→20:52)
[2019-08-05] MEDS ORDERED: Folic Acid 1 MG TABLET GTUBE SCH (09:00)
[2019-08-05] MEDS ORDERED: Lactobacillus 1 EACH CAP.SPRINK PO SCH (09:00)
[2019-08-05] MEDS: Budesonide/Formoterol 160/4.5 1 PUFF INH IH SCH ×2 (10:35→21:59)
[2019-08-05 16:09] LABS: ABG Base Excess 3 mEq/L (-2 to 3); ABG HCO3 27 mEq/L (21-27); ABG Oxygen Saturation 100 % (95-98); ABG PCO2 34 mmHg (35-45); ABG PO2 320 mmHg (85-104); ABG TCO2 28 mEq/L (20-26); Blood Gas Pressure Support 14 cm H2O
[2019-08-05] MEDS ORDERED: Piperacillin/Tazobactam 3.375 GM in D5% in Water (Mini-Bag+) 100 ML IVPB SCH (17:00)
[2019-08-05] MEDS ORDERED: *HR* OxyCODONE Oral Soln 5 MG/5 ML UD.LIQ GTUBE PRN (19:07)
[2019-08-05] MEDS ORDERED: Scopolamine Patch 1.5 MG PATCH.TD72 TD SCH (19:15)
[2019-08-05] MEDS ORDERED: traZODone 50 MG TABLET GTUBE SCH (21:00)
[2019-08-05] MEDS ORDERED: Mirtazapine 15 MG TABLET PO SCH (21:00)
[2019-08-05] MEDS ORDERED: Melatonin 3 MG TABLET GTUBE SCH (21:00)
[2019-08-05] MEDS: Morphine Sulfate 2 MG/ML SYRINGE IVP PRN (23:34)
[2019-08-05] MEDS: *HR* LORazepam 2 MG/ML VIAL IVP PRN (23:34)
[2019-08-06] MEDS: Morphine Sulfate 2 MG/ML SYRINGE IVP PRN ×3 (01:59→07:01)
[2019-08-06] MEDS ORDERED: *HR* LORazepam 2 MG/ML VIAL IVP PRN (03:55)
[2019-08-06] MEDS ORDERED: *HR* OxyCODONE Oral Soln 5 MG/5 ML UD.LIQ GTUBE PRN (03:55)
[2019-08-06] MEDS: Albuterol 2.5 MG/3 ML NEBULIZER IH SCH ×4 (04:34→21:50)
[2019-08-06] MEDS: Piperacillin/Tazobactam 3.375 GM in D5% in Water (Mini-Bag+) 100 ML IVPB SCH (07:03)
[2019-08-06] MEDS: levETIRAcetam 500 MG/5 ML UDC GTUBE SCH ×2 (09:11→21:36)
[2019-08-06] MEDS ORDERED: Morphine Sulfate Oral CONC 10 MG/0.5 ML ORAL.SYG SL PRN (09:55)
[2019-08-06] MEDS ORDERED: Budesonide/Formoterol 160/4.5 1 PUFF INH IH SCH (10:00)
[2019-08-06] MEDS: *HR* LORazepam 1 MG TABLET PO SCH ×3 (11:35→21:36)
[2019-08-06] MEDS ORDERED: Atropine Sulfate 1% 40 DROP/2 ML BOTTLE SL PRN (14:24)
[2019-08-06] MEDS: Melatonin 3 MG TABLET GTUBE SCH (21:36)
[2019-08-06] MEDS: traZODone 50 MG TABLET GTUBE SCH (21:36)
[2019-08-07] MEDS: Albuterol 2.5 MG/3 ML NEBULIZER IH SCH ×4 (03:59→22:40)
[2019-08-07] MEDS: *HR* LORazepam 1 MG TABLET PO SCH ×4 (04:48→21:05)
[2019-08-07] MEDS: levETIRAcetam 500 MG/5 ML UDC GTUBE SCH ×2 (09:26→21:05)
[2019-08-07] MEDS: traZODone 50 MG TABLET GTUBE SCH (21:05)
[2019-08-07] MEDS: Melatonin 3 MG TABLET GTUBE SCH (21:05)
[2019-08-08] MEDS: Albuterol 2.5 MG/3 ML NEBULIZER IH SCH ×4 (04:14→22:58)
[2019-08-08] MEDS: *HR* LORazepam 1 MG TABLET PO SCH ×3 (05:57→16:01)
[2019-08-08] MEDS: levETIRAcetam 500 MG/5 ML UDC GTUBE SCH ×2 (09:18→20:09)
[2019-08-08] MEDS ORDERED: Scopolamine Patch 1.5 MG PATCH.TD72 TD SCH (19:15)
[2019-08-08] MEDS: traZODone 50 MG TABLET GTUBE SCH (20:09)
[2019-08-08] MEDS: Melatonin 3 MG TABLET GTUBE SCH (20:09)
[2019-08-08 20:11] VITALS: BP 125/67
== END 2019-08-08 22:36 | disposition expired | DRG 853 ==
LOC: ICNU 22:25 → EMEROOARM 22:25 → SUATTDRO 07-29 00:38 → OBSVTOIN 07-29 00:38 → ICNU 07-29 01:10 → 2NNU 08-04 09:39 → ICNU 08-05 08:45 → 2ANU 08-05 22:49
PROVIDERS: ADMIT Family Medicine; ATTEND Internal Medicine